=== PATIENT | male | born 1965 | race Caucasian/White ===

== ENCOUNTER 2017-04-22 18:00 | Observation (INO) | payer OTHER ==
[~2017-04-22] VITALS: Ht 188 cm; Wt 97.1 kg
[~2017-04-22 18:00] MED LIST: ASPIR-LOW81 MG PO; COREG6.25 MG PO; DIGOXIN250 MCG PO; ELIQUIS5 MG PO; PACERONE 200 M200 M1 PO
[2017-04-22 18:02] VITALS: BP 160/77
[2017-04-22 18:25] LABS: ABSOLUTE BASOPHILS 0.1 thou/uL (0.0-0.2); ABSOLUTE EOSINOPHILS 0.2 thou/uL (0.0-0.7); ABSOLUTE LYMPHOCYTES 2.1 thou/uL (0.8-5.3); ABSOLUTE MONOCYTES 0.7 thou/uL (0.0-1.2); ABSOLUTE NEUTROPHILS 4.6 thou/uL (1.6-8.1); BASOPHILS 1.2 %; EOSINOPHILS 2.5 %; HEMATOCRIT 39.7 % (42.0-52.0); HEMOGLOBIN 13.7 gm/dL (14.0-18.0); LYMPHOCYTES 26.7 %; MCH 31.5 pg (26.0-34.0); MCHC 34.6 g/dL (28.0-37.0); MCV 91.3 fL (80.0-100.0); MONOCYTES 9.5 %; MPV 8.3 fl. (7.2-11.1); NUCLEATED RBCS 0 /100WBC; PLATELET COUNT* 203 thou/uL (150-400); POLYS 60.1 %; RBC 4.35 mil/uL (4.50-6.00); RDW-CV 14.7 % (10.5-14.5); WBC 7.7 thou/uL (4.0-11.0)
[2017-04-22 18:31] LABS: ANION GAP 8 mmol/L (7-16); BUN 23 mg/dL (7-18); CALCIUM 8.6 mg/dL (8.5-10.1); CHLORIDE 104 mmol/L (98-107); CO2 28 mmol/L (21-32); CREATININE 1.2 mg/dL (0.6-1.3); GLUCOSE 128 mg/dL (70-99); POTASSIUM 4.3 mmol/L (3.5-5.1); SODIUM 140 mmol/L (136-145)
[2017-04-22 18:34] LABS: APTT 24.4 Seconds (25.0-31.3); INR 1.1; PROTIME 10.4 Seconds (9.20-11.50)
[2017-04-22 18:37] LABS: ALBUMIN 3.9 g/dL (3.4-5.0); ALKALINE PHOSPHATASE 80 U/L (46-116); LIPASE 129 U/L (73-393); SGOT 13 U/L (15-37); SGPT 25 U/L (30-65); TOTAL BILIRUBIN 0.3 mg/dL (<0.1-1.0); TROPONIN-I LEVEL <0.06 ng/mL (<0.06)
[2017-04-22 18:47] LABS: URINE BILIRUBIN NEGATIVE (Negative); URINE BLOOD TRACE (Negative); URINE CLARITY CLEAR; URINE COLOR YELLOW; URINE GLUCOSE-RANDOM NEGATIVE (Negative); URINE KETONES NEGATIVE (Negative); URINE LEUKOCYTES-REFLEX NEGATIVE (Negative); URINE NITRITE-REFLEX NEGATIVE (Negative); URINE PROTEIN NEGATIVE (Negative); URINE SPECIFIC GRAVITY 1.025 (1.005-1.030); URINE UROBILINOGEN 0.2 E.U./dl (0.2-1.0)
[2017-04-23 00:08] VITALS: BP 125/75
[2017-04-23 02:05] LABS: HEMATOCRIT 39.2 % (42.0-52.0); HEMOGLOBIN 13.3 gm/dL (14.0-18.0); MCH 31.1 pg (26.0-34.0); MCHC 33.9 g/dL (28.0-37.0); MCV 91.8 fL (80.0-100.0); MPV 7.7 fl. (7.2-11.1); RBC 4.27 mil/uL (4.50-6.00); RDW-CV 14.5 % (10.5-14.5); WBC 7.4 thou/uL (4.0-11.0)
[2017-04-23 02:25] LABS: ALBUMIN 3.6 g/dL (3.4-5.0); CALCIUM 8.4 mg/dL (8.5-10.1); CREATININE 1.1 mg/dL (0.6-1.3); POTASSIUM 4.4 mmol/L (3.5-5.1); TOTAL BILIRUBIN 0.5 mg/dL (<0.1-1.0); TOTAL PROTEIN 6.2 g/dL (6.4-8.2)
[2017-04-23 04:17] VITALS: BP 98/64
--- NOTE | 2017-04-23 04:57 | NUR ---
PT ADMITTED FROM ER WITH SYNCOPE. HISTORY AND ASSESSMENT COMPLETE. AFIB ON MONITOR. ABRASION AND AND BUMP TO L FOREHEAD FROM FALL PRIOR TO ADMIT. FALL PRECAUTIONS IN PLACE INCLUDING BED ALARM. CALL LIGHT IN REACH. BED IN LOWEST POSITION.
[2017-04-23 08:15] VITALS: BP 116/67
--- NOTE | 2017-04-23 08:15 | NUR ---
ASSUMED PT. CARE AND RECEIVED REPORT AT 0730. PT A/OX4, VSS, MONITOR ON TRACING AFIB RATE 46. PT DENIES CURRENT PAIN/SOB/DIZZINESS. PT. STATES HE JUST BECAME OVERHEATED AT HIS BROTHERS HOUSE AND THAT IS WHY HE PASSED OUT. ORTHOSTATICS STABLE THIS MORNING AT LYING- 116/67 61, SITTING- 106/68 81, STANDING- 114/73 84. PT. ASKING MULTIPLE TIMES ABOUT GOING HOME TODAY. CURRENTLY HAS LIFE VEST HE WEARS, NOT ON AT THIS TIME PER PT. CHOOSING. FALL PRECAUTIONS IN PLACE, CALL LIGHT IN REACH, WILL CONTINUE WITH PLAN OF CARE.
[2017-04-23 11:58] VITALS: BP 109/66
--- NOTE | 2017-04-23 13:10 | EKG ---
[place] [address] ELECTROCARDIOGRAM REPORT Name: DAMIÁN ROBERTS Room: [address] M.R.#: [id number] Admission: 04/22/17 Attend Phys: Shilo Calle MD Discharge: Date of : 61 Report #: [id number] THIS REPORT FOR: //name// [facility] ED Test Date: 2017-04-22 Test Time: 18:25:13 Pat Name: DAMIÁN ROBERTS Department: Room: [facility] Gender: M Environmental Services Specialist: CARLIN : 1965 Requested By: Asad Munoz Order Number: [id number] MD: Barrington Euceda Measurements Intervals [place] Rate: 46 P: NM: QRS: 12 QRSD: 104 T: 50 QT: 446 QTc: 391 Interpretive Statements Atrial fibrillation Minimal ST depression, lateral leads Compared to ECG 01/24/2017 08:20:26 ST (T wave) deviation now present Electronically Signed On 04-23-2017 13:10:37 BOAT DESIGNER by Barrington Euceda [email or web address] <ELECTRONICALLY SIGNED> By: Barrington Euceda MD, [facility] 04/23/17 1310 1825 1825 Barrington Euceda MD, [facility] /EPI
[2017-04-23 13:55] VITALS: BP 109/66
--- NOTE | 2017-04-23 14:48 | NUR ---
OKAY TO DC FROM CARDIOLOGY. DR. JUAN CALL'D TO CANCEL NEURO CONSULT AND DC WHEN OKAY WITH CV. PT. COMPLETED ECHO PRIOR TO DC. IV AND MONITOR REMOVED. PT. AND MOTHER PUT LIFE BEST BACK ON. PT. GIVEN DC INSTRUCTIONS, INCLUDING CHANGES WITH AMIODORONE DOSING AND DC DIGOXIN, VERBALIZED UNDERSTANDING. PT. LEFT VIA WHEELCHAIR TO RETURN HOME IN PERSONAL VEHICLE, ALL BELONGINGS ACCOUNTED FOR.
--- NOTE | 2017-04-23 16:02 | 2DMMODE ---
[place] [address] 2 D/M-MODE ECHOCARDIOGRAM Name: DAMIÁN ROBERTS Room: [address] [place]ivo [place]#: [id number] Admission: 04/22/17 Attend Phys: Shilo Calle, Discharge: 04/23/17 Date of : 61 Date of Service: 04/23/17 1602 Report #: [id number] THIS REPORT FOR: //name// APPROVED REPORT Study performed: 04/23/2017 13:32:24 EXAM: Comprehensive 2D, Doppler, and color-flow Echocardiogram Patient Location: In-Patient Room #: 221 Status: routine BSA: 2.24 HR: 69 bpm BP: 109/66 mmHg Rhythm: Atrial Fibrillation Other Information Study Quality: Good Indications Congestive Heart Failure Syncope 2D Dimensions LVEF(%): 54.06 (>50%) IVSd: 14.47 (7-11mm) LVOT Diam: 22.94 (18-24mm) LVDd: 54.62 mm PWd: 12.31 (7-11mm) Ascending Ao: 32.72 (22-36mm) LVDs: 39.18 (25-40mm) Aortic Root: 40.45 mm Arellano's LVEF: 54.06 % Volumes Left Atrial Volume (Systole) LA ESV Index: 23.40 mL/m2 Aortic Valve AoV Peak Dale.: 1.09 m/s AO Peak Gr.: 4.73 mmHg LVOT Max P.26 mmHg AO Mean Gr.: 2.70 mmHg LVOT Mean P.46 mmHg LVOT Max V: 0.90 m/s AO V2 VTI: 16.58 cm LVOT Mean V: 0.54 m/s ROCIO (VTI): 3.80 cm2 LVOT V1 VTI: 15.24 [place] [address] 2 D/M-MODE ECHOCARDIOGRAM Name: DAMIÁN ROBERTS Room: [address] MCésar#: [id number] Admission: 04/22/17 Attend Phys: Shilo Calle, Discharge: 04/23/17 Date of : 61 Date of Service: 04/23/17 1602 Report #: [id number] MV Decel. Time: 206.51 ms MV PHT: 59.89 ms MVA (PHT): 3.67 cm2 TDI Medial E' Dale.: 0.12 m/s Lateral E' Dale.: 0.12 m/s Pulmonary Valve PV Peak Dale.: 1.02 m/s PV Peak Gr.: 4.19 mmHg Left Ventricle The left ventricle is normal size. There is normal LV segmental wall motion. Mild concentric left ventricular hypertrophy. Left ventricular systolic function is normal. The left ventricular ejection fraction is within the normal range. LVEF is 35-40%. The left ventricular diastolic function is normal. Right Ventricle The right ventricle is normal size. The right ventricular systolic function is normal. Atria The left atrium size is normal. The right atrium size is normal. Aortic Valve The aortic valve is normal in structure. No aortic regurgitation is present. There is no aortic valvular stenosis. Mitral Valve The mitral valve is normal in structure. There is no mitral valve regurgitation noted. No evidence of mitral valve stenosis. Tricuspid Valve The tricuspid valve is normal in structure. There is no tricuspid valve regurgitation noted. Pulmonic Valve The pulmonary valve is normal in structure. Mild pulmonic regurgitation. Great Vessels The aortic root is normal in size. IVC is normal in size and collapses with >50% [place] [address] 2 D/M-MODE ECHOCARDIOGRAM Name: DAMIÁN ROBERTS Room: [address] Yoly#: [id number] Admission: 04/22/17 Attend Phys: Shilo Calle, Discharge: 04/23/17 Date of : 61 Date of Service: 04/23/17 1602 Report #: [id number] Pericardium There is no pericardial effusion. <Conclusion> LVEF is 35-40%. There is normal LV segmental wall motion. Mild concentric left ventricular hypertrophy. There is no aortic valvular stenosis. No aortic regurgitation is present. <ELECTRONICALLY SIGNED> By: Barrington Euceda MD, FACC 04/23/171601 01 01 Barrington Euceda MD, FACC /INF
--- NOTE | 2017-04-30 09:44 | CON ---
[address] [address] CONSULTATION Name: ALEJANDRADAMIÁN Room: [address] [place]ivo [place]#: [id number] Admission: 04/22/17 Attend Phys: Shilo Calle MD Discharge: 04/23/17 Date of : 61 Report #: [id number] THIS REPORT FOR: //name// CC: FLAVIO physician/PCP Shilo Calle DATE OF SERVICE: 04/23/2017 CHIEF COMPLAINT: Syncope. HISTORY OF PRESENT ILLNESS: The patient is a 52-year-old male with a history of nonischemic cardiomyopathy, followed by myself as an outpatient. He had been visiting his brother's house in [place] and went in from the cold weather where he was wearing multiple layers in sweat shirt into his house, which apparently was very warm. He felt dizzy, nauseous and felt dizzy to the point where he thought he was going to pass out. He went outside to get some fresh air and then apparently lost consciousness. He bumped his head on the side of a car and had a mild abrasion, but ultimately CT scan of the brain was unremarkable. This morning, he is alert, oriented, no apparent distress. Overnight, on telemetry, he has had bradycardic episodes in his atrial fibrillation with heart rates in the low to mid 40s. He is aggressively treated for his atrial fibrillation with both amiodarone 200 mg daily, Coreg 6.25 mg daily and daily digoxin. He denies palpitations or heart racing. He has been wearing a LifeVest and denies any discharges. He has not had any ventricular arrhythmias on cardiac monitoring. He denies chest pain or pressure. PAST MEDICAL HISTORY: Significant for a nonischemic cardiomyopathy. At the end of January, he presented with atrial fibrillation and an EF of 20%. Subsequent cardiac catheterization demonstrated essentially normal coronary arteries. He has been placed on medical therapy for his nonischemic cardiomyopathy at that time and anticoagulation with Eliquis, which he has done well with. He was seen last in the office by myself on 03/11. REVIEW OF SYSTEMS: PULMONARY: No shortness of breath, no orthopnea, no PND. CARDIOVASCULAR: He has had about 5 pounds of weight gain, but he has been eating pretty heavily over the holiday weekend, but denies fluid retention. Denies orthopnea or PND. Denies dyspnea with exertion. NEUROLOGIC: Denies headaches, blurry vision, numbness, weakness, [place] [address] CONSULTATION Name: DAMIÁN ROBERTS [address]#: [id number] Admission: 04/22/17 Attend Phys: Shilo Calle MD Discharge: 04/23/17 Date of : 61 Report #: [id number] GASTROINTESTINAL: Denies hematemesis or melena, on his anticoagulation. GENITOURINARY: No dysuria or hematuria. ALLERGIES: No seasonal, aspirin or contrast allergies. CARDIOVASCULAR: No chest pain or pressure. RESPIRATORY: As noted above. SKIN: No rashes. CENTRAL NERVOUS SYSTEM: No seizure or paralysis. ENDOCRINE: He has no history of diabetes. Blood sugars have been normal. PHYSICAL EXAMINATION: VITAL SIGNS: Blood pressure is 116/67, heart rate of 61, in atrial fibrillation. GENERAL: This is a pleasant, thin adult male, who is alert, oriented, no apparent distress. HEENT: Eyes are intact. No facial asymmetry. NECK: Supple. CARDIOVASCULAR: Irregular. There is no murmur. LUNGS: Diminished breath sounds, clear to auscultation bilaterally. ABDOMEN: Soft, nontender. EXTREMITIES: No peripheral edema. SKIN: Warm and dry. PSYCHIATRIC: The patient has appropriate mood and affect. LABORATORY DATA: Present ECG demonstrated atrial fibrillation with normal ST segments. On telemetry, he has had bradycardia with heart rate in the mid to low 40s occasionally. His head CT demonstrated a moderate atrophy, no acute cerebral process. Chest x-ray unremarkable for CHF. Hemoglobin 13.3, platelet count 168,000. Sodium 142, potassium 4.4, chloride 105, CO2 is 30, BUN is 18, creatinine is 1.1. INR is 1.1. IMPRESSION: 1. Syncope. I think this is a combination of vasovagal syncope and bradycardia. He is aggressively treated with AV alyx acting agents because of his atrial fibrillation and cardiomyopathy which is felt to be tachycardia related. I will continue with his beta inge, carvedilol and reduce his amiodarone dose to 200 mg every other day. 2. Bradycardia. I am stopping his digoxin. I do not think it is necessary at this point. 3. Nonischemic cardiomyopathy, chronic systolic dysfunction. I will check a limited echocardiogram to see if there is improvement in his left ventricular function. He has been wearing a LifeVest. We will continue with this for the current time period. He seems clinically compensated with regard to his heart failure. I do not think he needs diuretics. This may exacerbate his vasovagal syncope. [address] [address] CONSULTATION Name: DAMIÁN ROBERTS Room: [address] [place]ivo [place]#: [id number] Admission: 04/22/17 Attend Phys: Shilo Calle MD Discharge: 04/23/17 Date of : 61 Report #: [id number] If he is feeling better the rest of this morning, it is okay for him to be discharged and follow up with our office as an outpatient with our nurse practitioner in one week. <ELECTRONICALLY SIGNED> By: Barrington Euceda MD, FACC 04/30/17 0944 1030 [id number] Euceda MD, FACC /nt
== END 2017-04-23 14:52 | disposition home or self-care (01) ==
LOC: M.ERS 18:00 → M.TBA-ER 22:44 → M.2W 04-23 00:08
PROVIDERS: Emergency Medicine; Emergency Medicine Emergency Medical Services; ADMIT Internal Medicine
DX: S09.90XA Unspecified injury of head, initial encounter (principal); R55 Syncope and collapse; F17.210 Nicotine dependence, cigarettes, uncomplicated; I48.91 Unspecified atrial fibrillation; I42.8 Other cardiomyopathies; R00.1 Bradycardia, unspecified; I50.22 Chronic systolic (congestive) heart failure; Z79.01 Long term (current) use of anticoagulants; Z91.19 Patient's noncompliance with other medical treatment and regimen; W22.8XXA Striking against or struck by other objects, initial encounter; Y93.89 Activity, other specified; Y92.89 Other specified places as the place of occurrence of the external cause; Y99.8 Other external cause status

== ENCOUNTER → 2017-07-23 | Outpatient (CLI) | payer OTHER ==
--- NOTE | 2017-07-23 15:44 | 2DMMODE ---
[place] [address] 2 D/M-MODE ECHOCARDIOGRAM Name: DAMIÁN ROBERTS Room: [facility]#: [id number] Admission: 07/23/17 Attend Phys: MAYUR Villarreal Discharge: Date of : 61 Date of Service: 07/23/17 1544 Report #: [id number] THIS REPORT FOR: //name// APPROVED REPORT Study performed: 07/23/2017 14:00:42 EXAM: Comprehensive 2D, Doppler, and color-flow Echocardiogram Patient Location: Out-Patient Status: routine BSA: 2.24 HR: 94 bpm BP: 148/95 mmHg Other Information Study Quality: Good Indications Cardiomyopathy 2D Dimensions LVEF(%): 57.51 (>50%) IVSd: 13.47 (7-11mm) LVOT Diam: 22.83 (18-24mm) LVDd: 58.77 mm PWd: 11.94 (7-11mm) Ascending Ao: 33.71 (22-36mm) LVDs: 40.70 (25-40mm) Aortic Root: 32.98 mm Arellano's LVEF: 57.51 % Volumes Left Atrial Volume (Systole) LA ESV Index: 26.50 mL/m2 Aortic Valve AoV Peak Dale.: 0.89 m/s AO Peak Gr.: 3.18 mmHg LVOT Max P.76 mmHg AO Mean Gr.: 1.93 mmHg LVOT Mean P.83 mmHg LVOT Max V: 0.66 m/s AO V2 VTI: 15.00 cm LVOT Mean V: 0.42 m/s ROCIO (VTI): 3.10 cm2 LVOT V1 VTI: 11.36 cm Mitral Valve MV Decel. Time: 218.33 ms MV PHT: 63.31 [place] [address] 2 D/M-MODE ECHOCARDIOGRAM Name: ALEJANDRADAMIÁN Room: [facility]#: [id number] Admission: 07/23/17 Attend Phys: MAYUR Villarreal Discharge: Date of : 61 Date of Service: 07/23/17 1544 Report #: [id number] MVA (PHT): 3.47 cm2 TDI Medial E' Dale.: 0.12 m/s Lateral E' Dale.: 0.14 m/s Pulmonary Valve PV Peak Dale.: 0.83 m/s PV Peak Gr.: 2.72 mmHg Tricuspid Valve TR Peak Gr.: 12.05 mmHg RVSP: 17.05 mmHg Left Ventricle Left ventricle is mildly dilated. There is moderate global hypokinesis. There is normal left ventricular wall thickness. Left ventricular systolic function is moderately decreased. LVEF is 35-40%. This study is not technically sufficient to allow evaluation of the LV diastolic function due to atrial fibrillation. Right Ventricle The right ventricle is normal size. The right ventricular systolic function is normal. Atria Left atrium is mildly dilated. The right atrium size is normal. Aortic Valve The aortic valve is normal in structure. No aortic regurgitation is present. There is no aortic valvular stenosis. Mitral Valve The mitral valve is normal in structure. There is no mitral valve regurgitation noted. No evidence of mitral valve stenosis. Tricuspid Valve The tricuspid valve is normal in structure. Trace tricuspid regurgitation. Pulmonic Valve The pulmonary valve is normal in structure. Mild pulmonic regurgitation. Great Vessels The aortic root is normal in size. IVC is normal in size and collapses with >50% [place] [address] 2 D/M-MODE ECHOCARDIOGRAM Name: DAMIÁN ROBERTS Room: [facility]#: [id number] Admission: 07/23/17 Attend Phys: Conchita Metcalf, WEASAND TRIMMER Discharge: Date of : 61 Date of Service: 07/23/17 1544 Report #: [id number] Pericardium There is no pericardial effusion. <Conclusion> Left ventricle is mildly dilated. There is normal left ventricular wall thickness. Left ventricular systolic function is moderately decreased. LVEF is 35-40%. There is moderate global hypokinesis. Left atrium is mildly dilated. <ELECTRONICALLY SIGNED> By: Maxim Alarcon MD, FACC 07/23/17 1544 1544 1544 Maxim Alarcon MD, FACC /INF
== END ==
LOC: M.CRD 13:40
DX: I42.9 Cardiomyopathy, unspecified (principal); I37.1 Nonrheumatic pulmonary valve insufficiency

== ENCOUNTER 2018-02-15 13:26 | Emergency (ER) | payer OTHER ==
[~2018-02-15] VITALS: Ht 188 cm; Wt 97.5 kg
[2018-02-15 14:22] VITALS: BP 131/80
== END 2018-02-15 14:23 | disposition home or self-care (01) ==
LOC: M.ERS 13:26
DX: I80.02 Phlebitis and thrombophlebitis of superficial vessels of left lower extremity (principal); I48.91 Unspecified atrial fibrillation